=== PATIENT | male | born 1990 | race Caucasian/White ===

== ENCOUNTER 2019-01-30 13:44 | Emergency (ER) | payer MEDICARE, MEDICAID, SELFPAY ==
[2019-01-30 13:55] VITALS: BP 138/78; PULSE 70; RESP 16; TEMP 36.6; O2SAT 99
--- NOTE | 2019-01-30 13:59 | W.ED.GENAD ---
Discharge Plan Disposition Patient Disposition: HOME Condition: Improving Discharge Details Chief Complaint: PsychEval Clinical Impression: Acute reaction to stress Primary Care Provider: Unknown,Unknown ED Provider: Crow Guadarrama Home Meds and New Rx's Prescriptions: Continued lithium carbonate 300 mg Tablet Extended Release 600 mg PO QPM RF: 0 lithium carbonate 300 mg Tablet Extended Release 300 mg PO QAM RF: 0 risperidone 2 mg Tablet 2 mg PO BID RF: 0 divalproex [Depakote ER] 500 mg Tablet Extended Release 24 Hr 500 mg PO BID RF: 0 Discharge Instructions Instructions: Anxiety (ED) Additional Instructions: We obtained a lithium level which is still pending. Continue all regular medications. Please follow-up with Noelle Shultz at the [facility] on Friday. Return to the emergency department for any acute concerns. Discharge Data Discharge Date/Time-TO BE ENTERED AT DEPARTURE: 01/30/19 15:39 Medical Decision Making 28-year-old male who is followed by the [facility] in [place]. She recently been staying at his parents house. Today there was an argument with with his father and the patient left the house to go out walking and was punching himself in the forehead. He was brought by state police. He states to me he feels improved. He no longer has thoughts of harming himself or others. He has been frustrated by some stress including lack of his domicile which is set to resolve on Friday. Vital signs are normal. Exam reassuring. Medical screening performed and patient seen by mental health screener. Medications include: Depakote, Risperdal, [place]. Screening labs obtained including medication levels. I discussed the patient's case with Noelle Suhltz from the [facility]. The patient is well known to them, he has been granted a Section 8 housing voucher and is to pursue housing in [place]. He has good outpatient support with his father and has agreed to an outpatient plan of safety. Lab Data Lab results reviewed: Yes I reviewed the patient's lab results. Laboratory Results - last 24 hr 01/30/19 01/30/19 01/30/19 14:50 14:50 14:50 WBC RBC Hgb Hct MCV MCH MCHC RDW Plt Count MPV Immature Gran % Neutrophils % Lymphocytes % Monocytes % Eosinophils % Basophils % Absolute Neutrophils Absolute Lymphocytes Absolute Monocytes Absolute Eosinophils Absolute Basophils Sodium 139 Potassium 4.3 Chloride 103 Carbon Dioxide 27.6 Anion Gap 8.4 BUN 13 Creatinine 0.98 Estimated GFR/1.73 m2 >= 60.00 Glucose 87 Calcium 9.4 Total Bilirubin 0.4 AST 25 ALT 31 Alkaline Phosphatase 67 Total Protein 7.9 Albumin 4.5 Total Valproic Acid 53.1 [place] 0.75 01/30/19 14:50 WBC 7.45 RBC 5.07 Hgb 15.8 Hct 47.4 MCV 93.5 MCH 31.2 MCHC 33.3 RDW 12.7 Plt Count 185 MPV 10.6 Immature Gran % 0.3 Neutrophils % 64.1 Lymphocytes % 25.8 Monocytes % 8.6 Eosinophils % 0.8 Basophils % 0.4 Absolute Neutrophils 4.78 Absolute Lymphocytes 1.92 Absolute Monocytes 0.64 Absolute Eosinophils 0.06 Absolute Basophils 0.03 Sodium Potassium Chloride Carbon Dioxide Anion Gap BUN Creatinine Estimated GFR/1.73 m2 Glucose Calcium Total Bilirubin AST ALT Alkaline Phosphatase Total Protein Albumin Total Valproic Acid [place] HPI General Mode of arrival: ambulatory. Date/Time Provider Initiated Documentation: 01/30/19 13:49. Limitations to Documentation: no limitations. Information obtained by: patient and police. History of Present Illness 28 year old M presents to the emergency department with the chief complaint of Brought by police after emotional outburst at home., described as moderate, Patient started experiencing this minute(s) and it has been now resolved. No relieving factors improve symptom(s), No exacerbating factors reported . Patient notes no other symptoms. and other (No thoughts of harming himself or others); denies chest pain, fever/chills, headaches, loss of appetite and malaise. Patient did receive the following treatments prior to arrival, none Related Data Home Medications Medication Instructions Recorded Confirmed divalproex [Depakote ER] 500 mg PO BID 01/30/19 01/30/19 lithium carbonate 300 mg PO QAM 01/30/19 01/30/19 lithium carbonate 600 mg PO QPM 01/30/19 01/30/19 risperidone 2 mg PO BID 01/30/19 01/30/19 Allergies Allergy/AdvReac Type Severity Reaction Status Date / Time No Known Allergies Allergy Unverified 01/30/19 13:50 General Stated Complaint: PsychEval DEDRA: 2 Review of Systems Review of Systems Denies recent illness. Has plans to resume housing in [place] on Friday. Followed by the [facility]. 6 systems reviewed and otherwise neg [facility] Medical History ADHD (Acute) Bipolar 1 disorder (Acute) Intellectual disability (Acute) PTSD (post-traumatic stress disorder) (Acute) Social History Smoking/Tobacco Use Status: Never Alcohol Intake: never Substance use type: does not use Exam Narrative Exam Narrative: GEN: awake, alert, oriented 3. Pleasant, well groomed, interactive. HEAD: Normocephalic, atraumatic ENT: Mucous membranes moist, oropharynx unremarkable, External ear exam unremarkable EYES: PERRL, EOMI NECK: Full ROM, no GM, no menigismus CHEST/RESP: Nontender, clear to auscultation bilateral, no wheeze/rhonchi/rales CARDIOVASCULAR: RRR, no murmur, rub kaitlin. 2+ Rad pulse bilateral ABDOMEN: Soft, nontender, no mass. +Bowel sounds EXT: Full ROM, no edema, no rash Neuro: Grossly normal neurologic exam, conversant, interactive. Psych: Speech fluent, thoughts congruent, affect flat Course Vital Signs Temperature 36.6 C 01/30/19 13:55 Pulse 70 01/30/19 13:55 Respiratory Rate 16 01/30/19 13:55 Blood Pressure 138/78 01/30/19 13:55 Pulse Oximetry 99 01/30/19 13:55 Temperature 36.6 C 01/30/19 13:55 Temperature Source Temporal Artery Scan 01/30/19 13:55 Pulse 70 01/30/19 13:55 Respiratory Rate 16 01/30/19 13:55 Blood Pressure 138/78 01/30/19 13:55 Blood Pressure Position Sitting 01/30/19 13:55 Pulse Oximetry 99 01/30/19 13:55 Oxygen Delivery Method Room Air 01/30/19 13:55 Oxygen Flow Rate 0 01/30/19 13:55
--- NOTE | 2019-01-30 14:02 | ED.GENADUL_ITS ---
Discharge Plan Disposition Patient Disposition: HOME Condition: Improving Discharge Details Chief Complaint: PsychEval Clinical Impression: Acute reaction to stress Primary Care Provider: Unknown,Unknown ED Provider: Crow Guadarrama Home Meds and New Rx's Prescriptions: Continued lithium carbonate 300 mg Tablet Extended Release 600 mg PO QPM RF: 0 lithium carbonate 300 mg Tablet Extended Release 300 mg PO QAM RF: 0 risperidone 2 mg Tablet 2 mg PO BID RF: 0 divalproex [Depakote ER] 500 mg Tablet Extended Release 24 Hr 500 mg PO BID RF: 0 Discharge Instructions Instructions: Anxiety (ED) Additional Instructions: We obtained a lithium level which is still pending. Continue all regular medications. Please follow-up with Noelle Shultz at the [facility] on Friday. Return to the emergency department for any acute concerns. Discharge Data Discharge Date/Time-TO BE ENTERED AT DEPARTURE: 01/30/19 15:39 Medical Decision Making 28-year-old male who is followed by the [facility] in [place]. She recently been staying at his parents house. Today there was an argument with with his father and the patient left the house to go out walking and was punching himself in the forehead. He was brought by state police. He states to me he feels improved. He no longer has thoughts of harming himself or others. He has been frustrated by some stress including lack of his domicile which is set to resolve on Friday. Vital signs are normal. Exam reassuring. Medical screening performed and patient seen by mental health screener. Medications include: Depakote, Risp erdal, [place]. Screening labs obtained including medication levels. I discussed the patient's case with Noelle Shultz from the [facility]. The patient is well known to them, he has been granted a Section 8 housing voucher and is to pursue housing in [place]. He has good outpatient support with his father and has agreed to an outpatient plan of safety. Lab Data Lab results reviewed: Yes I reviewed the patient's lab results. Laboratory Results - last 24 hr 01/30/19 01/30/19 01/30/19 14:50 14:50 14:50 WBC RBC Hgb Hct MCV MCH MCHC RDW Plt Count MPV Immature Gran % Neutrophils % Lymphocytes % Monocytes % Eosinophils % Basophils % Absolute Neutrophils Absolute Lymphocytes Absolute Monocytes Absolute Eosinophils Absolute Basophils Sodium 139 Potassium 4.3 Chloride 103 Carbon Dioxide 27.6 Anion Gap 8.4 BUN 13 Creatinine 0.98 Estimated GFR/1.73 m2 >= 60.00 Glucose 87 Calcium 9.4 Total Bilirubin 0.4 AST 25 ALT 31 Alkaline Phosphatase 67 Total Protein 7.9 Albumin 4.5 Total Valproic Acid 53.1 [place] 0.75 01/30/19 14:50 WBC 7.45 RBC 5.07 Hgb 15.8 Hct 47.4 MCV 93.5 MCH 31.2 MCHC 33.3 RDW 12.7 Plt Count 185 MPV 10.6 Immature Gran % 0.3 Neutrophils % 64.1 Lymphocytes % 25.8 Monocytes % 8.6 Eosinophils % 0.8 Basophils % 0.4 Absolute Neutrophils 4.78 Absolute Lymphocytes 1.92 Absolute Monocytes 0.64 Absolute Eosinophils 0.06 Absolute Basophils 0.03 Sodium Potassium Chloride Carbon Dioxide Anion Gap BUN Creatinine Estimated GFR/1.73 m2 Glucose Calcium Total Bilirubin AST ALT Alkaline Phosphatase Total Protein Albumin Total Valproic Acid [place] HPI General Mode of arrival: ambulatory . Date/Time Provider Initiated Documentation: 01/30/19 13:49 . Limitations to Documentation: no limitations . Information obtained by: patient and police . History of Present Illness 28 year old M presents to the emergency department with the chief complaint of Brought by police after emotional outburst at home., described as moderate, Patient started experiencing this minute(s) and it has been now resolved. No relieving factors improve symptom(s), No exacerbating factors reported . Patient notes no other symptoms. and other (No thoughts of harming himself or others); denies chest pain, fever/chills, headaches, loss of appetite and malaise. Patient did receive the following treatments prior to arrival, none Related Data Home Medications Medication Instructions Recorded Confirmed divalproex [Depakote ER] 500 mg PO BID 01/30/19 01/30/19 lithium carbonate 300 mg PO QAM 01/30/19 01/30/19 lithium carbonate 600 mg PO QPM 01/30/19 01/30/19 risperidone 2 mg PO BID 01/30/19 01/30/19 Allergies Allergy/AdvReac Type Severity Reaction Status Date / Time No Known Allergies Allergy Unverified 01/30/19 13:50 General Stated Complaint: PsychEval DEDRA: 2 Review of Systems Review of Systems Denies recent illness. Has plans to resume housing in [place] on Friday. Followed by the [facility]. 6 systems reviewed and otherwise neg [facility] Medical History ADHD (Acute) Bipolar 1 disorder (Acute) Intellectual disability (Acute) PTSD (post-traumatic stress disorder) (Acute) Social History Smoking/Tobacco Use Status: Never Alcohol Intake: never Substance use type: does not use Exam Narrative Exam Narrative: GEN: awake, alert, oriented 3. Pleasant, well groomed, interactive. HEAD: Normocephalic, atraumatic ENT: Mucous membranes moist, oropharynx unremarkable, External ear exam unremarkable EYES: PERRL, EOMI NECK: Full ROM, no GM, no menigismus CHEST/RESP: Nontender, clear to auscultation bilateral, no wheeze/rhonchi/rales CARDIOVASCULAR: RRR, no murmur, rub kaitlin. 2+ Rad pulse bilateral ABDOMEN: Soft, nontender, no mass. +Bowel sounds EXT: Full ROM, no edema, no rash Neuro: Grossly normal neurologic exam, conversant, interactive. Psych: Speech fluent, thoughts congruent, affect flat Course Vital Signs Temperature 36.6 C 01/30/19 13:55 Pulse 70 01/30/19 13:55 Respiratory Rate 16 01/30/19 13:55 Blood Pressure 138/78 01/30/19 13:55 Pulse Oximetry 99 01/30/19 13:55 Temperature 36.6 C 01/30/19 13:55 Temperature Source Temporal Artery Scan 01/30/19 13:55 Pulse 70 01/30/19 13:55 Respiratory Rate 16 01/30/19 13:55 Blood Pressure 138/78 01/30/19 13:55 Blood Pressure Position Sitting 01/30/19 13:55 Pulse Oximetry 99 01/30/19 13:55 Oxygen Delivery Method Room Air 01/30/19 13:55 Oxygen Flow Rate 0 01/30/19 13:55
[2019-01-30 14:58] LABS: Abs Immature Grans 0.02 k/cumm (0.0-0.09); Absolute Basophil Count 0.03 k/cumm (0.0-0.2); Absolute Eosinophil Count 0.06 k/cumm (0.0-0.7); Absolute Lymphocyte Count 1.92 k/cumm (1.2-3.4); Absolute Monocyte Count 0.64 k/cumm (0.11-0.7); Absolute Neutrophil Count 4.78 k/cumm (1.2-6.7); Basophils % 0.4; Eosinophils % 0.8; HCT 47.4 % (40.0-50.0); HGB 15.8 g/dL (13.5-17.5); Immature Grans % 0.3; Lymphocytes % 25.8; Mean Corp. HGB Concentration 33.3 g/dL (32.0-36.0); Mean Corpuscular Hemoglobin 31.2 pg (27.0-33.0); Mean Corpuscular Volume 93.5 fL (80-95); Mean Platelet Volume 10.6 fL (8.0-11.0); Monocytes % 8.6; Neutrophils % 64.1; Platelet Count 185 x1000/uL (130-400); RBC 5.07 m/cumm (4.50-6.00); RBC Distribution Width 12.7 % (11.8-14.1); White Blood Cell Count 7.45 k/cumm (4.4-10.8)
[2019-01-30 15:11] LABS: VALPROIC ACID 53.1 ug/mL (50-100)
[2019-01-30 15:12] LABS: ALT 31 U/L (12-78); AST 25 U/L (15-37); Albumin 4.5 g/dL (3.4-5.0); Alkaline Phosphatase 67 U/L (46-116); Anion Gap 8.4 mmol/L (3-11); BUN 13 mg/dL (7-18); Bilirubin, Total 0.4 mg/dL (0.2-1.0); CO2 27.6 mmol/L (21.0-32.0); CREATININE 0.98 mg/dL (0.70-1.30); Calcium 9.4 mg/dL (8.5-10.1); Chloride 103 mmol/L (98-107); Glucose 87 mg/dL (70-100); Potassium 4.3 mmol/L (3.5-5.1); Sodium 139 mmol/L (136-145); Total Protein 7.9 g/dL (6.4-8.2)
--- NOTE | 2019-01-30 15:18 | PDOC.MHCN ---
Date of service: 01/30/19 Time of Service: 15:18 Mental Health Crisis Note Presenting Issue How did you arrive at the ED and why did you come: D arrived at [facility] ED [facility] after father made call to 911 that D was sicidal. Precipitating Factors D denied SI and HI. There are no signs of delusions or halluciantions. Disposition BEHAVIOR: D is cooperative and engaged in discussion. He asks appropriate questions. EYE CONTACT: Good eye contact. MOOD: Normal and apporopriate. AFFECT: WNL APPETITE: Good SLEEP(trouble falling/staying asleep: Good Plan D is safe and will be released. I called his father and father is on his way to pick him up. D will stay at [facility] until Friday when he is supposed to be returning to [facility]. I left a message for his cm and let her know the outcome. Let her know she could call [facility] on Friday if she would like a copy of his note. Signature Clinician's Name/Title: Carol Bee MS Emergency Services Clinician
--- NOTE | 2019-01-30 15:22 | PDOC.MHCN_ITS ---
Date of service: 01/30/19 Time of Service: 15:18 Mental Health Crisis Note Presenting Issue How did you arrive at the ED and why did you come: D arrived at [facility] ED [facility] after father made call to 911 that D was sicidal. Precipitating Factors D denied SI and HI. There are no signs of delusions or halluciantions. Disposition BEHAVIOR: D is cooperative and engaged in discussion. He asks appropriate questions. EYE CONTACT: Good eye contact. MOOD: Normal and apporopriate. AFFECT: WNL APPETITE: Good SLEEP(trouble falling/staying asleep: Good Plan D is safe and will be released. I called his father and father is on his way to pick him up. D will stay at [facility] until Friday when he is supposed to be returning to [facility]. I left a message for his cm and let her know the outcome. Let her know she could call [facility] on Friday if she would like a copy of his note. Signature Clinician's Name/Title: Carol Bee MS Emergency Services Clinician
[2019-01-30 16:09] LABS: Lithium 0.75 mmol/L (0.60-1.20)
== END 2019-01-30 15:39 | disposition home or self-care (01) ==
PROVIDERS: Emergency Provider Emergency Medicine
DX: F43.0 Acute stress reaction (principal)
CPT/HCPCS: 36415; 80053; 99284; 80164; 80178; 85025